=== PATIENT | male | born 1950 | race African-American/Black ===

== ENCOUNTER → 2016-09-26 | Outpatient (CLI) | payer OTHER ==
[~2016-09-26] MED LIST: CLONIDINE HCL0.1 MG PO; LOSARTAN-HCTZ1 EAC1 PO
--- NOTE | ~2016-09-26 | US140 ---
[facility] A Service of [facility] RADIOLOGY TEXT RESULTS PATIENT: OBDULIO GALLOWAY SR LOCATION: CNIV : 48 UNIT #: [id number] AGE: [address]: Linwood Gutierrez MD SEX: M ORDER DR: [id number] [facility] [address] [place], [place] [address] [id number] O MR#: [id number] Acc #: [id number] NAME: OBDULIO GALLOWAY : 1950 SEX: M STUDY DATE/TIME: 09/26/2016 15:55 UNIT: CNIV ROOM: STUDY DESCRIPTION: UE Veins Unilat or Ltd Stdy Attending Physician: Linwood Gutierrez M.D. Referring Physician: Linwood Gutierrez M.D. Ordering Physician: Linwood Gutierrez M.D. MEDICAL IMAGING REPORT This report is preliminary unless electronic signature is present EXAM Right upper extremity venous duplex 09/26/2016 HISTORY Right upper extremity pain for 2 weeks. Evaluate for deep vein thrombosis. TECHNIQUE Camilo-scale images of the right upper extremity were obtained as well as Doppler waveform spectral analysis and color flow Doppler imaging. FINDINGS There is normal blood flow and compressibility in the right internal jugular vein as well as right subclavian, axillary, brachial, cephalic and basilic veins. There is no evidence of deep vein thrombosis in the right upper extremity. IMPRESSION Negative right upper extremity venous duplex with no evidence of deep vein thrombosis. Dictated by... Fransico Epstein M.D. THIS IS AN ELECTRONICALLY VERIFIED REPORT Fransico Epstein M.D. at 09/27/2016 7:19 AM TESSIE/silvia TD: 09/26/2016 22:43 JOB #: [id number] MEDICAL IMAGING REPORT [facility] A Service of [facility] RADIOLOGY TEXT RESULTS PATIENT: OBDULIO GALLOWAY SR LOCATION: CNIV : 48 UNIT #: [id number] AGE: [address]: Linwood Gutierrez MD SEX: M ORDER DR: Page 1 of 1 COPY
== END | disposition home or self-care (01) ==
LOC: CNIV 15:35
DX: I80.11 Phlebitis and thrombophlebitis of right femoral vein (principal)
CPT/HCPCS: 93971